=== PATIENT | female | born 1955 | race Caucasian/White ===

== ENCOUNTER → 2019-11-26 15:58 | Outpatient (CLI) | payer MEDICAID, SELFPAY ==
--- NOTE | 2019-11-26 16:04 | RAD_ITS ---
HISTORY: BACK PAIN X6 YEARS. COMPARISON: None FINDINGS: # of images incl. paperwork: 0 XR Spine Lumbar 2 or 3 Views: Lumbar vertebral bodies are normal in height. Lumbar disc spaces are well maintained. No acute lumbar spine fracture or subluxation. Degenerative disc disease is mild. This disease is manifested by minimal loss of vertebral body height. Facet arthropathy is present. This is greatest at the L4-L5 and L5-S1 levels. Atherosclerotic plaque in the abdominal aorta. RAD/Lumbar Spine 2 or 3 Views IMPRESSION: No acute lumbar spine fracture or subluxation. at 0610 Reported and signed by: Audi Damon MD Electronically Signed: Audi Damon MD at 6:08 EDT Tel , Service support ,
--- NOTE | 2019-11-26 16:04 | RAD_ITS ---
STUDY: X-RAY - SACRUM/COCCYX REASON FOR EXAM: Female, 64 years old. BACK PAIN X6 YEARS TECHNIQUE: 3 view(s) of the sacrum and coccyx were obtained. COMPARISON: None. FINDINGS: There is degenerative arthrosis of the bilateral sacroiliac joints. Normal visualized sacral ala and fused sacral bodies. Normal sacrococcygeal junction with a normal angulation. Normal coccygeal segments. The presacral soft tissue structures are unremarkable. RAD/Sacrum-Coccyx min 2 Views IMPRESSION: Degenerative changes of both sacroiliac joints. Electronically Signed: Eduar Rock, at 8:16 EDT , Service support ,
--- NOTE | 2019-11-26 16:07 | RAD_ITS ---
HISTORY: HIP PAIN. BACK PAIN X6 YEARS. EXAM: Pelvis, and 2 views of the right hip COMPARISON: None FINDINGS: # of images incl. paperwork: 3 The right femoral head is well-seated within the right acetabulum without fracture. Pubic rami are intact. Atherosclerosis is present within the internal iliac arteries No acute fracture of pelvis. Proximal femurs are intact. Sacroiliac joints and hip joints are normal. Femoral heads are adequately seated in their respective acetabulae. RAD/HIP, UNI W/ Pelvis 2-3 Views IMPRESSION: Normal AP pelvis, and 2 views of the right hip without fracture. at 0610 Reported and signed by: Audi Damon MD Electronically Signed: Audi Damon MD at 6:09 EDT Tel , Service support ,
== END ==
PROVIDERS: PCP Family Medicine; Referring Provider Anesthesiology Pain Medicine; Visit Provider Anesthesiology Pain Medicine
DX: M54.9 Dorsalgia, unspecified (principal)
CPT/HCPCS: 72100; 72220; 73502

== ENCOUNTER → 2020-01-07 14:46 | Outpatient (CLI) | payer MEDICAID, SELFPAY ==
[2020-01-07 16:27] LABS: Amphetamine Urine VISTA NEGATIVE (<1000 ng/mL); Barbiturate Urine VISTA NEGATIVE (< 200 ng/mL); Benzodiazepine Urine VISTA NEGATIVE (< 200 ng/mL); Cocaine Urine VISTA NEGATIVE (< 300 ng/mL); Ecstacy Urine VISTA NEGATIVE (< 500 ng/mL); Methadone Urine VISTA NEGATIVE (< 300 ng/mL); PCP Urine VISTA NEGATIVE (< 25 ng/mL); THC Urine VISTA NEGATIVE (< 50 ng/mL); Vista UDS pH Range 6
== END ==
PROVIDERS: PCP Family Medicine; Referring Provider Anesthesiology Pain Medicine; Visit Provider Anesthesiology Pain Medicine
DX: F11.20 Opioid dependence, uncomplicated (principal)
CPT/HCPCS: 80307

== ENCOUNTER → 2020-03-27 16:32 | Outpatient (CLI) | payer MEDICAID, SELFPAY ==
[2020-03-27 17:44] LABS: Amphetamine Urine VISTA NEGATIVE (<1000 ng/mL); Barbiturate Urine VISTA NEGATIVE (< 200 ng/mL); Benzodiazepine Urine VISTA NEGATIVE (< 200 ng/mL); Cocaine Urine VISTA NEGATIVE (< 300 ng/mL); Ecstacy Urine VISTA NEGATIVE (< 500 ng/mL); Methadone Urine VISTA NEGATIVE (< 300 ng/mL); PCP Urine VISTA NEGATIVE (< 25 ng/mL); THC Urine VISTA NEGATIVE (< 50 ng/mL); Vista UDS pH Range 6
== END ==
PROVIDERS: PCP Family Medicine; Referring Provider Anesthesiology Pain Medicine; Visit Provider Anesthesiology Pain Medicine
DX: F11.20 Opioid dependence, uncomplicated (principal)
CPT/HCPCS: 80307

== ENCOUNTER 2020-06-06 09:57 | Day surgery (SDC) | payer MEDICAID, SELFPAY ==
[2020-06-06 10:24] VITALS: BP 150/68; PULSE 61; RESP 16; TEMP 36.4; O2SAT 96; BMI 18.9
[2020-06-06] MEDS: Lactated Ringers 1,000 ML 100 ML IV (10:39)
[2020-06-06 11:45] LABS: Bedside Glucose 128 mg/dL (70-110)
--- NOTE | 2020-06-06 12:00 | BONBX_PTH ---
PATIENT: DARION MADRIGAL LOC: [facility] – [place], [place] U#:[id number] AGE/SX: 65/F ROOM: RE06/06/[address]: Dr. Miladis Mccollum MD : [id number] BED: DIS: 06/06/2020 SPEC #: [id number] RECD: 06/06/20 14:22 STATUS: MOIRA REQ #: [id number] CHRISTIANO: 06/06/20 12:[address]: Miladis Mccollum DEPT: SURGICAL PATHOLOGY RECD BY: Dyana Castellano ENTERED: 06/09/20 08:01 SP TYPE: Bone OTHR DR: Dr. Eliana Soto, DO Tissues: Vertebra, NOS Procedures: Decalcification bone/plaque Surgery Specimen Level V HEADER OPERATION: Kyphoplasty T9 PRE-OP DIAGNOSIS: Compression fracture T9 TISSUE SUBMITTED: Bone biopsy MICROSCOPIC DIAGNOSIS T9 bone, core biopsy: Trilineage hematopoiesis and focal fibrinoid material. See comment. AM:malki 06/10/2020 COMMENT The lesion may represent a fracture site. Clinical correlation is suggested. MICROSCOPIC DESCRIPTION Slides are reviewed. GROSS DESCRIPTION Received in fixative is one container labeled with the patient's name and designated bone biopsy T9. The specimen consists of one fragment of bone measuring 0.4 x 0.2 x 0.1 cm. The specimen is totally submitted in one cassette after decalcification. / SJ:malik 06/09/20 TC:5 CPT: 29477, 33920
--- NOTE | 2020-06-06 12:00 | RAD_ITS ---
CLINICAL HISTORY: Female, 65 years old. Compression fracture. PROCEDURE: KYPHOPLASTY - T9 FLUOROSCOPY TIME (if supplied): (125.9 seconds) minutes/seconds. 7 intraoperative images were obtained.
[2020-06-06] MEDS: Bupivacaine Mpf 0.5% 30 ML VIAL (12:40)
[2020-06-06 12:57] VITALS: BP 150/68; BP 171/79; PULSE 79; RESP 16; TEMP 36.7; O2SAT 100
[2020-06-06 13:05] VITALS: BP 150/68; BP 159/72; PULSE 85; RESP 14; O2SAT 94
[2020-06-06 13:16] VITALS: BP 150/68; BP 94/78; PULSE 75; RESP 14; O2SAT 94
[2020-06-06 13:20] VITALS: BP 150/68; BP 159/66; PULSE 73; RESP 15; TEMP 36.8; O2SAT 94
[2020-06-06 13:36] LABS: Bedside Glucose 138 mg/dL (70-110)
[2020-06-06 14:45] VITALS: BP 150/68; BP 153/66; PULSE 74; RESP 16; TEMP 36.7; O2SAT 94
--- NOTE | 2020-06-06 16:38 | SUR.PHASEII ---
[id number] Pt finally was able to get dorothy of transport Alexis Bittar to pick her up after multiple attempts by nurse and patient. MARTHA
== END 2020-06-06 16:25 ==
LOC: SDC 09:58 → AC 09:59
PROVIDERS: PCP Family Medicine; Referring Provider Anesthesiology Pain Medicine; Visit Provider Anesthesiology Pain Medicine
PROC: (CPT 22513; principal; 2020-06-06 11:45)
DX: M80.08XA Age-related osteoporosis with current pathological fracture, vertebra(e), initial encounter for fracture (principal); G89.4 Chronic pain syndrome; M51.36 Other intervertebral disc degeneration, lumbar region; M51.37 Other intervertebral disc degeneration, lumbosacral region; M46.1 Sacroiliitis, not elsewhere classified; E11.9 Type 2 diabetes mellitus without complications; K21.9 Gastro-esophageal reflux disease without esophagitis; F41.9 Anxiety disorder, unspecified; K44.9 Diaphragmatic hernia without obstruction or gangrene; F32.9 Major depressive disorder, single episode, unspecified; I10 Essential (primary) hypertension; Z79.84 Long term (current) use of oral hypoglycemic drugs; Z79.899 Other long term (current) drug therapy; G25.81 Restless legs syndrome; F17.210 Nicotine dependence, cigarettes, uncomplicated
CPT/HCPCS: 22513; 72070; 72100; 76000; 82962; 87426; 88307; 88311; J7120; J2405

== ENCOUNTER → 2020-08-18 15:26 | Outpatient (CLI) | payer MEDICAID, SELFPAY ==
--- NOTE | 2020-08-18 15:35 | RAD_ITS ---
STUDY: X-RAY - THORACIC SPINE REASON FOR EXAM: Female, 65 years old. FALL, back pain TECHNIQUE: 3 view(s) of the thoracic spine were obtained. COMPARISON: None. FINDINGS: Normal kyphosis of the thoracic spine. There is no substantial scoliosis. Chronic mild wedge compression fracture of T9 treated with vertebroplasty. Normal disc space heights. The soft tissue structures are unremarkable. RAD/Thoracic Spine 2 Views IMPRESSION: No acute fracture or subluxation. Electronically Signed: Franklin Villafana MD at 17:38 EDT Tel , Service support ,
== END ==
PROVIDERS: PCP Family Medicine; Referring Provider Anesthesiology Pain Medicine; Visit Provider Anesthesiology Pain Medicine
DX: M54.9 Dorsalgia, unspecified (principal)
CPT/HCPCS: 72070